=== PATIENT | female | born 1965 | race African-American/Black ===

== ENCOUNTER 2017-04-12 15:17 | Emergency (ER) | payer OTHER ==
[~2017-04-12] VITALS: Ht 157.5 cm; Wt 94.0 kg
[~2017-04-12 15:17] MED LIST: AMLO2.5T45; BENA10TA3; HYDR25TA
[2017-04-12 17:44] VITALS: BP 141/85
== END 2017-04-12 18:15 | disposition home or self-care (01) ==
LOC: ER 18:10
DX: T63.301A Toxic effect of unspecified spider venom, accidental (unintentional), initial encounter (principal); I10 Essential (primary) hypertension; F17.200 Nicotine dependence, unspecified, uncomplicated; Y92.89 Other specified places as the place of occurrence of the external cause
CPT/HCPCS: 99283

== ENCOUNTER 2018-07-26 11:59 | Emergency (ER) | payer MEDICAID, OTHER ==
[~2018-07-26] VITALS: Ht 157.5 cm; Wt 94.0 kg
[~2018-07-26 11:59] MED LIST changes: +BENA10TA10; -BENA10TA3
[2018-07-26 12:22] VITALS: BP 123/81
== END 2018-07-26 17:15 | disposition left against medical advice (07) ==
LOC: ER 11:59
DX: R05 Cough (principal); R09.81 Nasal congestion; Z53.21 Procedure and treatment not carried out due to patient leaving prior to being seen by health care provider